=== PATIENT | female | born 1940 | race Caucasian/White ===

== ENCOUNTER 2018-12-30 07:04 | Emergency (ER) | payer MEDICARE, SELFPAY ==
[2018-12-30] VITALS (32 sets, daily range): BP systolic 101–143; BP diastolic 58–87; PULSE 61–99; RESP 8–29; TEMP 36.5; O2SAT 95–100
--- NOTE | 2018-12-30 07:30 | ED.GENADUL_ITS ---
Discharge Plan Disposition Patient Disposition: HOME Condition: Stable Discharge Details Chief Complaint: Allergic Clinical Impression: Allergic reaction Primary Care Provider: Senait,Local ED Provider: Enid Lindo Home Meds and New Rx's Prescriptions: New cephalexin [Keflex] 500 mg capsule 500 mg PO BID Qty: 14 RF: 0 prednisone 50 mg tablet 50 mg PO DAILY Qty: 4 RF: 0 epinephrine [EpiPen] 0.3 mg/0.3 mL auto-injector 0.3 mg IM ONCE Qty: 2 RF: 0 Discontinued doxycycline hyclate 100 mg Tablet 100 mg PO BID RF: 0 No Action oxybutynin chloride 5 MG tablet extended release 24hr 5 mg PO DAILY RF: 0 Discharge Instructions Instructions: Cephalexin (By mouth), Prednisone (By mouth), Epinephrine (Injection), General Allergic Reaction (ED) Additional Instructions: Please do not fill your Keflex prescription unless you develop symptoms and have discussed starting Keflex with your urologist. It is extremely important that you call your primary care doctor and your urologist as soon as possible to schedule an appointment to be seen in follow-up. Please return immediately to the emergency department if you develop any new or worsening symptoms or if you become otherwise concerned. Please stop taking doxycycline as we discussed. Discharge Data Discharge Date/Time-TO BE ENTERED AT DEPARTURE: 12/30/18 10:49 Medical Decision Making Melissa Cervantes is an 78 y/o woman with history of GERD, recurrent UTIs, multiple medication allergies who presented to the emergency department with throat tightness after starting doxycycline 2 days ago. On exam patient is very well and nontoxic appearing. Normal oropharynx. Normal voice. Lungs are clear to auscultation. Concern for possible allergic reaction to medication. Exam/history is not consistent with sepsis, impending airway compromise, other infectious process. Patient does report that since being in the emergency department she feels significantly better, this is prior to her receiving any meds in the ER. Patient seen initially by Dr. Duke, full H&P performed by myself. Benadryl, Solu-Medrol, IVF, UA initially ordered by Dr. Duke. Patient states that she has had allergic reaction to joint cortisone injections in the past, but has been on p.o. prednisone without issue. Will change Solu- Medrol to p.o. prednisone. Plan to observe patient in the emergency department. Patient reporting that symptoms have resolved fully on reassessment. UA negative for infection. Patient resides mainly in [place], where her PCP and urologist are. Patient states that she is very concerned about stopping doxycycline and not having prescription for antibiotic for UTIs, as she states that in the past they spiral out of control very quickly if not treated immediately. I am concerned about starting patient on new antibiotics with negative urine and patient currently without UTI symptoms. However given holiday and patient is out of town, plan to prescribe Keflex for patient to fill only if she has return of symptoms. Allergy to Keflex as noted in medical record, and states that itching is allergic reaction. Given the patient is also noted to be allergic to cefuroxime, Cipro, nitrofurantoin, penicillins, sulfa, and now doxycycline, Keflex may be safest p.o. medication at this time. I recommended to the patient that she not start taking Keflex without first discussing plan with her PCP and/or urologist. I discussed with patient the risk of taking Keflex given that she has a history of allergic reaction to it, however she has been taking doxycycline with known mild allergic reaction, taking Benadryl as needed for symptoms. Given throat tightness I think that the switch to Keflex is a safer option. Will also prescribe short course prednisone and EpiPen as patient states she does not have one. I had a lengthy discussion with the patient regarding return to emergency department precautions, importance of outpatient follow-up with PCP and urology as soon as possible, and home care. Patient verbalized understanding the plan was amenable. All questions were answered. Medical Records Medical records reviewed: Yes I reviewed the patient's medical records. Lab Data Lab results reviewed: Yes I reviewed the patient's lab results. HPI General Mode of arrival: ambulatory . Date/Time Provider Initiated Documentation: 12/30/18 07:17 . Limitations to Documentation: no limitations . Information obtained by: patient, RN notes reviewed and old records reviewed . HPI Narrative: Melissa Cervantes is an 78 y/o woman with history of GERD, bladder prolapse status post mesh repair, recurrent UTI, multiple medication allergies presenting to the emergency department with throat tightness. Patient reports that she has recurrent urinary tract infections, and has standing prescription for 3 days of doxycycline which she takes frequently for UTI symptoms. Patient reports that she started current course of doxycycline 2 days ago. Patient reports that yesterday she woke up and had some swelling of her face, which is a reaction she has had with other antibiotics and also with doxycycline. Patient usually takes Benadryl and continues with doxycycline. Patient reports that her last dose of doxycycline was last night at midnight. She reports that she woke up this morning with a sensation of throat tightness and took Benadryl. Patient denies any pain, fever, shortness of breath, cough, vomiting, diarrhea, numbness, weakness. Has been taking p.o. without issue. No recent illness. No recent travel. No other known exposures to allergens. Related Data Home Medications Medication Instructions Recorded Confirmed oxybutynin chloride 5 mg PO DAILY 10/15/15 12/30/18 cephalexin [Keflex] 500 mg PO BID #14 cap 12/30/18 epinephrine [EpiPen] 0.3 mg IM ONCE #2 each 12/30/18 prednisone 50 mg PO DAILY #4 tab 12/30/18 Previous Rx's Medication Instructions Recorded cephalexin [Keflex] 500 mg PO BID #14 cap 12/30/18 epinephrine [EpiPen] 0.3 mg IM ONCE #2 each 12/30/18 prednisone 50 mg PO DAILY #4 tab 12/30/18 Allergies Allergy/AdvReac Type Severity Reaction Status Date / Time azithromycin [From Zithromax] Allergy Mild Itching Unverified 12/30/18 07:23 caffeine Allergy Mild Skin Rash Unverified 12/30/18 07:23 cefuroxime Allergy Mild Itching Unverified 12/30/18 07:23 cephalexin monohydrate Allergy Mild Itching Unverified 12/30/18 07:23 [From Keflex] ciprofloxacin [From Cipro] Allergy Mild Swelling/Ed Unverified 12/30/18 07:23 venessa ciprofloxacin HCl Allergy Mild Swelling/Ed Unverified 12/30/18 07:23 [From Cipro] venessa cortisone Allergy Mild Swelling/Ed Unverified 12/30/18 07:23 venessa Latex, Natural Rubber Allergy Mild Skin Rash Unverified 12/30/18 07:23 Nitrofuran Analogues Allergy Mild Swelling/Ed Unverified 12/30/18 07:23 venessa Penicillins Allergy Mild Hives Unverified 12/30/18 07:23 ranitidine HCl [From Zantac] Allergy Mild Nausea Unverified 12/30/18 07:23 Sulfa (Sulfonamide Allergy Mild Itching Unverified 12/30/18 07:23 Antibiotics) doxycycline Allergy Throat Unverified 12/30/18 09:14 tightness/facial swelling venom-honey bee AdvReac Severe Anaphylaxsi Unverified 12/30/18 07:23 [bee venom (honey bee)] s codeine AdvReac Intermediate Psychosis Unverified 12/30/18 07:23 General Stated Complaint: Allergic CRISTOPHER: 2 Review of Systems Review of Systems Constitutional: denies fevers Eyes: denies eye pain ENT: denies facial pain, dental pain, sore throat, reports facial swelling and throat tightness Cardiovascular: denies chest pain Respiratory: denies SOB, cough GI: denies abdominal pain, vomiting, diarrhea : denies flank pain MSK: denies back pain, neck pain, arthralgias, myalgias Skin: denies rash, itching Neuro: denies headaches, numbness, weakness PFSH Social History Smoking/Tobacco Use Status: Former Tobacco Use Alcohol Intake: current Alcohol Intake frequency: holidays/special occasions only Drug use: Never Do you feel safe at home: Yes Do you feel safe in your relationship?: Yes Exam Narrative Exam Narrative: Constitutional: well and [id number], pleasant, conversing normally HENT: head atraumatic/normocephalic/normal inspection, mucous membranes moist, normal oropharynx without edema, no tongue or lip swelling, no intraoral lesion, uvula midline Eyes: conjunctiva normal, sclera normal, pupils 3mm b/l Neck: no stridor, normal ROM, trachea midline Chest: normal inspection Resp: normal work of breathing, LCTAB Cardio: normal rate, normal rhythm, no murmur appreciated Back: normal inspection, no rash Skin: warm, dry, normal color, no rash Neuro: alert, not altered, grossly non-focal, normal tone Ext: no edema Psych: normal mood, normal affect, normal behavior Course Vital Signs Temperature 36.5 C 12/30/18 07:16 Pulse 71 12/30/18 07:16 Respiratory Rate 15 12/30/18 07:16 Blood Pressure 143/81 H 12/30/18 07:16 Pulse Oximetry 98 12/30/18 07:16 Temperature 36.5 C 12/30/18 07:16 Temperature Source Temporal Artery Scan 12/30/18 07:16 Pulse 71 12/30/18 07:16 Respiratory Rate 15 12/30/18 07:16 Respiratory Effort Non-Labored 12/30/18 07:25 Respiratory Pattern Normal 12/30/18 07:25 Blood Pressure 143/81 H 12/30/18 07:16 Blood Pressure Position Supine 12/30/18 07:16 Pulse Oximetry 98 12/30/18 07:16 Oxygen Delivery Method Room Air 12/30/18 07:16 Oxygen Flow Rate 0 12/30/18 07:16 Pain Level 0 12/30/18 07:16
[2018-12-30] MEDS: Normal Saline 1,000 ML 1000 ML IV (07:45)
[2018-12-30] MEDS: predniSONE 20 MG TAB 60 MG PO (07:51)
[2018-12-30] MEDS: diphenhydrAMINE 50 MG/ML VIAL 25 MG IVP (07:52)
[2018-12-30 08:01] LABS: Bilirubin Negative (Negative); Blood Negative (Negative); Clarity Clear (Clear); Glucose Negative (Negative); Ketones Negative (Negative); Leukocyte Esterase Negative (Negative); Nitrite Negative (Negative); Specific Gravity 1.015 (1.005-1.025); Urobilinogen 0.2 EU/dL (Up TO 0.2)
== END 2018-12-30 10:49 | disposition home or self-care (01) ==
PROVIDERS: Physician Assistant; Emergency Provider Student in an Organized Health Care Education/Training Program
DX: R09.89 Other specified symptoms and signs involving the circulatory and respiratory systems (principal); R22.0 Localized swelling, mass and lump, head; T36.4X5A Adverse effect of tetracyclines, initial encounter; Z87.440 Personal history of urinary (tract) infections; Z88.1 Allergy status to other antibiotic agents
CPT/HCPCS: 96361; 96374; 99284; 81003; J1200; J7512

== ENCOUNTER 2023-09-27 16:26 | Emergency (ER) | payer MEDICARE, SELFPAY ==
[2023-09-27 16:37] VITALS: BP 159/68; PULSE 75; RESP 18; TEMP 36.8; O2SAT 97
[2023-09-27] MEDS: Doxycycline Hyclate 100 MG CAP 200 MG PO (17:12)
--- NOTE | 2023-09-27 17:13 | ED.GENADUL_ITS ---
Discharge Plan Disposition Patient Disposition: Home Condition: Good Discharge Details Clinical Impression: Tick bite Primary Care Provider: Senait,Local ED Provider: Karin Youssef Home Meds and New Rx's Prescriptions: Continued oxybutynin chloride 5 MG tablet extended release 24hr 5 mg PO DAILY cephalexin [Keflex] 500 mg capsule 500 mg PO BID Qty: 14 0RF prednisone 50 mg tablet 50 mg PO DAILY Qty: 4 0RF Rx Instructions: Please begin taking 12/31/18 epinephrine [EpiPen] 0.3 mg/0.3 mL auto-injector 0.3 mg IM ONCE Qty: 2 0RF Rx Instructions: as a single dose Discharge Instructions Instructions: Tick Bite (ED) Additional Instructions: You were given a one time dose of doxycyline to prevent Lyme disease. Please avoid sun exposure for the next few days to prevent a photosensitivity reaction. Keep your tick bite clean and dry. Wash daily with antibacterial soap and water, then apply a thin layer of triple antibiotic ointment. Look out for signs of infection (redness, swelling, pus drainage, pain) to the tick bite or signs of tick borne illness such as fever/chills, malaise, body aches. Return to care if you notice any of these. Discharge Data Discharge Date/Time-TO BE ENTERED AT DEPARTURE: 09/27/23 17:17 HPI General Date/Time Provider Initiated Documentation: 09/27/23 16:49 . HPI Narrative: Melissa is an 83-year-old female with history of multiple medication allergies who presents to the emergency department today for evaluation of tick bite to her left breast. She reports that this afternoon while she was in the shower she noticed a tick on her, tried removing it but was unable to remove all the mouthparts. She reports she has been able to tolerate doxycycline in the past. Denies history of Lyme disease or tickborne illness. She says she has recently been in good health. She is visiting from [place], has PCP at home she can follow-up with. She is not sure when she could have gotten the tick. Related Data Home Medications Medication Instructions Recorded Confirmed oxybutynin chloride 5 mg 5 mg PO DAILY 16 12/30/18 tablet,extended release 24 hr cephalexin 500 mg capsule (Keflex) 500 mg PO BID #14 caps 12/30/18 epinephrine 0.3 mg/0.3 mL 0.3 mg (0.3 mL) IM ONCE #2 ea 12/30/18 injection, auto-injector (EpiPen) prednisone 50 mg tablet 50 mg PO DAILY #4 tabs 12/30/18 Previous Rx's Medication Instructions Recorded cephalexin 500 mg capsule (Keflex) 500 mg PO BID #14 caps 12/30/18 epinephrine 0.3 mg/0.3 mL 0.3 mg (0.3 mL) IM ONCE #2 ea 12/30/18 injection, auto-injector (EpiPen) prednisone 50 mg tablet 50 mg PO DAILY #4 tabs 12/30/18 Allergies Allergy/AdvReac Type Severity Reaction Status Date / Time azithromycin [From Zithromax] Allergy Mild Itching Unverified 09/27/23 16:50 caffeine Allergy Mild Skin Rash Unverified 09/27/23 16:50 cefuroxime Allergy Mild Itching Unverified 09/27/23 16:50 cephalexin monohydrate Allergy Mild Itching Unverified 09/27/23 16:50 [From Keflex] ciprofloxacin [From Cipro] Allergy Mild Swelling/Ed Unverified 09/27/23 16:50 venessa ciprofloxacin HCl Allergy Mild Swelling/Ed Unverified 09/27/23 16:50 [From Cipro] venessa cortisone Allergy Mild Swelling/Ed Unverified 09/27/23 16:50 venessa Latex, Natural Rubber Allergy Mild Skin Rash Unverified 09/27/23 16:50 Nitrofuran Analogues Allergy Mild Swelling/Ed Unverified 09/27/23 16:50 venessa Penicillins Allergy Mild Hives Unverified 09/27/23 16:50 ranitidine HCl [From Zantac] Allergy Mild Nausea Unverified 09/27/23 16:50 Sulfa (Sulfonamide Allergy Mild Itching Unverified 09/27/23 17:03 Antibiotics) venom-honey bee AdvReac Severe Anaphylaxsi Unverified 09/27/23 16:50 [bee venom (honey bee)] s codeine AdvReac Intermediate Psychosis Unverified 09/27/23 16:50 General Stated Complaint: InsectBite CRISTOPHER: 4 Review of Systems Narrative: see HPI Exam Const General: cooperative, healthy appearing, comfortable, no acute distress and well developed Nutritional Appearance: average body habitus Chest Chest: other (tick bite to L superior breast, 1 cm round erythematous lesion) Resp Effort & Inspection: normal respiratory effort and able to speak in complete sentences Course Vital Signs Vital signs: Vital Signs Temperature 36.8 C 09/27/23 16:37 Pulse 75 09/27/23 16:37 Respiratory Rate 18 09/27/23 16:37 Blood Pressure 159/68 H 09/27/23 16:37 Pulse Oximetry 97 09/27/23 16:37 Temperature 36.8 C 09/27/23 16:37 Pulse 75 09/27/23 16:37 Respiratory Rate 18 09/27/23 16:37 Respiratory Effort Normal, Non-Labored 09/27/23 16:43 Blood Pressure 159/68 H 09/27/23 16:37 Pulse Oximetry 97 09/27/23 16:37 Medical Decision Making Melissa is an 83-year-old female with history of multiple medication allergies who presents to the emergency department today for evaluation of tick bite to her left breast. She reports that this afternoon while she was in the shower she noticed a tick on her, tried removing it but was unable to remove all the mouthparts. She reports she has been able to tolerate doxycycline in the past. Denies history of Lyme disease or tickborne illness. She says she has recently been in good health. She is visiting from [place], has PCP at home she can follow-up with. She is not sure when she could have gotten the tick. Physical exam very reassuring. Patient is alert and interactive, no acute distress. Reddened round lesion approximately 1 cm diameter noted to the superior left breast, small black speck noted, consistent with tick mouthparts. No surrounding erythema or tenderness to palpation. I did attempt to remove the tick parts, however they were not able to be easily removed. Discussed with patient that this will grow out. RN to provide good cleaning of area. Tick bite prophylaxis provided with doxycycline. 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 Quality:SDOH Health Related Social Needs: No Data to Display PFSH All Active Problems (Updated 09/27/23 @ 16:51 by Karin Hawk) Tick bite (Acute) Social History Smoking/Tobacco Use Status: Former Tobacco Use Smoking risk assessment performed?: Yes Alcohol Intake: current Alcohol Intake frequency: holidays/special occasions only Drug use: Never Do you feel safe at home: Yes Do you feel safe in your relationship?: Yes
== END 2023-09-27 17:17 | disposition home or self-care (01) ==
LOC: ER 17:23
PROVIDERS: Emergency Provider Nurse Practitioner Family
DX: S20.162A Insect bite (nonvenomous) of breast, left breast, initial encounter (principal); W57.XXXA Bitten or stung by nonvenomous insect and other nonvenomous arthropods, initial encounter; Z88.1 Allergy status to other antibiotic agents; Z88.2 Allergy status to sulfonamides
CPT/HCPCS: 99283